=== PATIENT | male | born 1970 | race Caucasian/White ===

== ENCOUNTER 2023-09-19 14:31 | Inpatient (IN) | payer OTHER ==
[~2023-09-19] VITALS: Ht 185.4 cm; Wt 119.6 kg
[2023-10-08] VITALS (13 sets, daily range): BP systolic 116–145; BP diastolic 76–90; PULSE 77–99; TEMP 97–98.4
[2023-10-08] MEDS ORDERED: COZAAR 25MG25 MG/TAB PO (08:44)
[2023-10-08] MEDS ORDERED: NEXIUM 40MG40 MG PO (08:45)
[2023-10-08] MEDS ORDERED: NORVASC2.5 MG PO (08:45)
[2023-10-08] MEDS ORDERED: ZETIA 10MG TAB10 MG PO (08:45)
[2023-10-08] MEDS ORDERED: OMEGA-3 1000 MG1 CAP PO (08:46)
--- NOTE | 2023-10-08 08:55 | NUR ---
The patient ambulated back to [place] [facility] independently using a steady gait and appeared to tolerate the activity well. Vital signs obtained. Consent signed. Assessment completed. Home medications reconcilled. 18G IV started in left hand on second attempt, LR Infusing without difficulty. Warm blanket provided. Call light is within reach. at bedside. Denies any further needs at this time.
--- NOTE | 2023-10-08 15:36 | NUR ---
Pt to unit s/p robotic sigmoidectomy. Pt has 6 abdomen sites CDI w/ skin glue. Carias cath patent to drainage w/ dark lucius urine. Per [facility] pt noted to have scant/minimal amt of UOP during OR & recovery. Pt was bladder scanned w/o any noted residual. Will continue to monitor UOP. Pt sleepy but is easily arousable. Denies pain. He is A/O x 4. Skin is intact. Pt denies any needs at this time. Call light in reach.
--- NOTE | 2023-10-08 15:55 | NUR ---
Pt continues to sleep in supine position in bed. Arouses easily to name. Denies pain/discomfort & states "I'm okay for now". Pt denies any needs. Call light in his reach.
--- NOTE | 2023-10-08 17:48 | NUR ---
Pt awake & sitting up in bed reading on his cellphone. He denies the need for pain medication at this time. Denies nausea. Abd sites x 6 remains CDI w/ skin glue. Dinner delivered & pt attempting to eat (clear liq) dinner. Other needs denied. Call light in his reach.
--- NOTE | 2023-10-08 20:40 | NUR ---
PT A&O X4 LAYING IN BED. VSS ON ROOM AIR. C/O PAIN MOSTLY ON RIGHT SIDE ABD 7/10, GIVEN PRN SEE MAR. X6 ABD INCISIONS GLUED & EDGES WELL APPROX. NO C/O N/V & TOLERATING CLEARS. IVF INFUSING TO LEFT HAND. BROOKS TO DD WITH YELLOW OUTPUT. SCDS ON & CALL LIGHT IN REACH. DENYING FURTHER NEEDS.
[2023-10-09] VITALS (15 sets, daily range): BP systolic 116–149; BP diastolic 70–123; PULSE 71–85; TEMP 97.5–98.8
[2023-10-09 05:34] LABS: HEMATOCRIT 41.2 % (42.0-52.0); HEMOGLOBIN 13.8 g/dl (13.5-18.0); MEAN CELL VOLUME 94 fl (80.0-100.0); MEAN CORPUSCULAR HEMOGLOBIN 32 pg (27-31); MEAN CORPUSCULAR HGB CONC 34 g/dl (33.0-37.0); MEAN PLATELET VOLUME 11.3 fl (7.4-10.4); PLATELET COUNT 274 K/mm3 (130-400); RED BLOOD COUNT 4.37 M/mm3 (4.20-5.60); REDCELL DISTRIBUTION WIDTH-CV 13.3 % (11.5-14.5)
[2023-10-09 05:46] LABS: CALCIUM 9.6 mg/dL (8.4-10.2); CREATININE, serum 1.05 mg/dL (0.72-1.25); POTASSIUM 4.2 mmol/L (3.5-4.5)
--- NOTE | 2023-10-09 05:54 | NUR ---
STATES PAIN IS 8/1O IN ABD, GIVEN PRN SEE MAR. BROOKS D/C BY RN WITH BALLOON INTACT & 2500ML YELLOW OUTPUT. CALL LIGHT IN REACH & DENYING FURTHER NEEDS.
[2023-10-09 05:58] LABS: BAND 5 % (0-10); LYMPHOCYTE 10 % (20.0-51.0); NEUTROPHILS 76 % (42.0-75.2); PLATELET ESTIMATE NORMAL (NORMAL)
--- NOTE | 2023-10-09 07:31 | NUR ---
Pt sitting in room on cell phone. A&O X4. INT in L hand with no signs of redness or drainage. 6 glued incisions noted on abdomen CDI. SCDs in place. No complaints at this time.
--- NOTE | 2023-10-09 07:33 | NUR ---
RECIEVED REPORT FROM [facility] SPECIALIST RN. PT AWAKE WAITING ON BREAKFAST. CALL LIGHT WITHIN REACH.
--- NOTE | 2023-10-09 11:16 | NUR ---
Pt sitting in bed. 1100 VS obtained. Pt reported 8/10 pain. Information given to primary nurse for PRN pain medication. No other acute changes. End of student nurse shift.
--- NOTE | 2023-10-09 11:33 | NUR ---
Pt alert and oriented X4. Vital signs stable, shift assessment cmplete. Medicated per emar. Pain rated 8/10. Up to restroom voiding after davis D/C. Pain from trying to pass gas, kristina take a walk later to try to expell more. INT to left hand flushing well. On clear liquids, drinking well. Call light within reach.Bed alarm set.
--- NOTE | 2023-10-09 12:36 | NUR ---
D: Initial visit: [employer] stopped by room on rounds. Pt was resting and content. A: Pt has no needs right now. P: [employer] informed pt that if he needed anything to let his nurse know. [employer] will follow up as needed.
--- NOTE | 2023-10-09 14:16 | NUR ---
drug worker met with pt to discuss discharge planning. He lives in [place] with his , Louisa [phone]. He is attempting to change his PCP, but it is Dr. Laurie Bales at this time. He obtains medications from [facility] with no difficulty. He is independent with all ADLS and uses a CPAP for DME. He might be interested in a DPOA-HC at a later time. SW informed him to call if he wants one completed here. Pt intends to return home with a ride at 11am tomorrow he stated. Discharge Plan: Home
[2023-10-09] MEDS ORDERED: ROXICODONE 55 MG/TAB PO (17:11)
[2023-10-09] MEDS ORDERED: TYLENOL 500MG500 MG PO (17:11)
--- NOTE | 2023-10-09 19:00 | NUR ---
RECEIVED CHANGE OF SHIFT REPORT FROM DAY SHIFT RN. PATIENT UP IN ROOM INDEPENDENTLY WITH NO REPORTED CONCERNS AT TIME OF REPORT. SALINE LOCK IN PLACE. SCD CURRENTLY OFF PER PATIENT.
[2023-10-10 01:00] VITALS: BP_SYST 118
[2023-10-10 03:50] VITALS: BP 118/79; PULSE 65; TEMP 97.5
[2023-10-10 05:30] VITALS: BP_SYST 118
--- NOTE | 2023-10-10 07:16 | NUR ---
CHANGE OF SHIFT REPORT GIVEN TO DAY SHIFT RNLYNNE.
--- NOTE | 2023-10-10 07:44 | NUR ---
RECIEVED REPORT FROM NIGHT RN. PT SLEPT WELL OVERNIGHT WITH NO ADDITIONAL CONCERNS. CALL LIGHT WITHIN REACH. BED ALARM SET.
[2023-10-10 08:25] VITALS: BP 124/68; PULSE 67; TEMP 98.1
[2023-10-10 09:00] VITALS: BP_SYST 124
--- NOTE | 2023-10-10 09:50 | NUR ---
OF PATIENT ARRIVED WITH CAR SERVICE TO BRING PATIENT HOME. ALL DISCHARGE INSTRUCTIONS EXPLAINED AND QUESTIONS ANSWERED. INT TO LEFT HAND REMOVED. PT ESCORTED TO PRIVATE VEHICLE.
--- NOTE | 2023-10-10 10:13 | NUR ---
Pt alert and oriented this am, anticipating going home today. Tolerating pain better with taking higher dose of pain medication. Pain rated 8/10, medicated for pain and per emar. Vital signs stable, shift assessment complete, see documentation. INT to left hand flushing well. Denies further needs at this time. Call light within reach.
== END 2023-10-10 09:50 | disposition home or self-care (01) | DRG 331 ==
LOC: SURG 10-08 07:30 → INPTSU 10-08 08:07 → SURG 10-08 10:30 → INPTSU 10-08 11:51 → SURG 10-08 13:15
PROVIDERS: ADMIT Surgery
PROC: 8E0W4CZ Robotic Assisted Procedure of Trunk Region, Percutaneous Endoscopic Approach (ICD-10-PCS; 2023-10-08)
PROC: 0DTN4ZZ Resection of Sigmoid Colon, Percutaneous Endoscopic Approach (ICD-10-PCS; principal; 2023-10-08 10:30)
DX: K63.5 Polyp of colon (principal)
CPT/HCPCS: A4314; A9284; J0690; J1100; J1170; J1650; J1836; J1885; J2250; J2371; J2405; J2704; J2795; J3010; J7120